=== PATIENT | male | born 2000 | race Caucasian/White ===

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

== ENCOUNTER 2021-04-01 07:20 | Emergency (ER) | payer BC, OTHER ==
[~2021-04-01] VITALS: Ht 188 cm; Wt 80.0 kg
[2021-04-01] MEDS ORDERED: LIDOCAINE-MPF 1%, 2ML ONE (07:46)
[2021-04-01] MEDS ORDERED: BUPIVACAINE 0.25% ONE (07:46)
[2021-04-01] MEDS ORDERED: PLEASE ENTER ALLERGIES MC SCH (08:00)
[2021-04-01] MEDS ORDERED: LIDOCAINE-MPF 1%, 5ML INFIL ONE (08:00)
[2021-04-01] MEDS ORDERED: BUPIVACAINE/PF-EPI 0.25% 1:200K SQ ONE (08:00)
--- NOTE | 2021-04-01 08:02 | NUR ---
DIAN SCHUSTER AT BEDSIDE FOR SUTURE.
[2021-04-01] MEDS ORDERED: BACITRACIN ZINC OINT 500U/GM, 0.9 GM ONE (09:53)
--- NOTE | 2021-04-01 10:18 | NUR ---
PT SUTURES COMPLETED, DRSG APPLIED PER DIAN LEO-C ORDERS. PT GIVEN CRUTCHES PER ORDERS. PT OK FOR D/C, VERBALIZED UNDERSTANDING OF D/C ORDERS, PAPERS GIVEN.
[2021-04-01 10:21] VITALS: BP 128/78
== END 2021-04-01 10:23 | disposition home or self-care (01) ==
LOC: ED 07:48
DX: S81.811A Laceration without foreign body, right lower leg, initial encounter (principal); X58.XXXA Exposure to other specified factors, initial encounter; Y93.89 Activity, other specified; Y92.009 Unspecified place in unspecified non-institutional (private) residence as the place of occurrence of the external cause; Y99.8 Other external cause status
CPT/HCPCS: 12034; 99284